=== PATIENT | female | born 1980 | race Hispanic/Latino ===

== ENCOUNTER 2017-12-29 15:39 | Emergency (ER) | payer BC, OTHER ==
[2017-12-29 16:08] LABS: BASOPHILS % (AUTO) 0.6 % (0.0-5.0); EOSINOPHILS % (AUTO) 2.3 % (0.0-8.0); HEMATOCRIT 41.2 % (36-48); LYMPHOCYTES % (AUTO) 41.2 % (21.0-51.0); MEAN CORPUSCULAR HEMOGLOBIN 27.3 pg (27.0-33.0); MEAN CORPUSCULAR HGB CONC 33.1 g/dL (32.0-36.0); MEAN CORPUSCULAR VOLUME 82.5 fL (79-99); MONOCYTES % (AUTO) 10.2 % (3.0-13.0); NEUTROPHILS % (AUTO) 45.7 % (40.0-77.0); NUCLEATED RED BLOOD CELLS 0.1 % (0.0-0.19); PLATELET COUNT (AUTO) 257 K/uL (130-400); RED BLOOD CELL COUNT(AUTO) 4.99 MIL/uL (4.00-5.50); RED CELL DISTRIBUTION WIDTH 16.5 % (11.0-15.5); WHITE BLOOD COUNT (AUTO) 10.3 K/uL (4.8-10.8)
[2017-12-29 16:09] LABS: APPEARANCE,URINE Cloudy (CLEAR); BILIRUBIN,URINE Negative (NEGATIVE); COLOR,URINE Yellow (YELLOW); GLUCOSE, URINE (UA) Negative (NEGATIVE); KETONES,URINE Negative (NEGATIVE); LEUKOCYTE ESTERASE ,URINE Small (NEGATIVE); NITRATE,URINE Negative (NEGATIVE); OCCULT BLOOD,URINE Large (NEGATIVE); PROTEIN,URINE Trace (NEGATIVE)
[2017-12-29 16:11] LABS: HCG,QUAL RESULT NEGATIVE (NEGATIVE)
[2017-12-29 16:17] LABS: POTASSIUM 3.3 mmol/L (3.5-5.1)
[2017-12-29 16:19] LABS: BACTERIA,URINE Few /HPF (None Seen); RBC,URINE 51-100 /HPF (0-1)
[2017-12-29 16:20] LABS: MUCUS,URINE Few LPF (None Seen)
[2017-12-29 16:22] LABS: ALBUMIN 4.2 g/dL (3.5-5.0); BILIRUBIN,TOTAL 0.4 mg/dL (0.2-1.0); TOTAL PROTEIN, SERUM 8.1 g/dL (6.0-8.3)
[2017-12-29] MEDS ORDERED: KETOROLAC TROMETHAMINE 30MG/ML ONE (16:47)
[2017-12-29] MEDS ORDERED: ONDANSETRON HCL 4 MG/2 ML VIAL ONE ×3 (16:47→22:01)
[2017-12-29] MEDS ORDERED: KETOROLAC TROMETHAMINE 15MG/ML ONE (17:42)
[2017-12-29] MEDS ORDERED: MORPHINE SULFATE 2 MG/ML 1ML SYG ONE (21:23)
[2017-12-29] MEDS ORDERED: TAMSULOSIN HCL 0.4 MG CAP.ER.24H ONE (21:23)
== END 2017-12-29 21:47 | disposition home or self-care (01) ==
LOC: EDH 15:39
DX: N20.1 Calculus of ureter (principal); Z98.890 Other specified postprocedural states
CPT/HCPCS: 36415; 76700; 80053; 81001; 81025; 85025; 96374; 96375; 96376; 99285; J1885 ×2; J2405 ×3

== ENCOUNTER 2019-07-26 13:24 | Emergency (ER) | payer BC, OTHER ==
[2019-07-26 14:20] LABS: BASOPHILS % (AUTO) 0.3 % (0.0-5.0); EOSINOPHILS % (AUTO) 0.1 % (0.0-8.0); HEMATOCRIT 39.9 % (36-48); LYMPHOCYTES % (AUTO) 12.6 % (21.0-51.0); MEAN CORPUSCULAR HEMOGLOBIN 25.4 pg (27.0-33.0); MEAN CORPUSCULAR HGB CONC 31.6 g/dL (32.0-36.0); MEAN CORPUSCULAR VOLUME 80.4 fL (79-99); MONOCYTES % (AUTO) 2.7 % (3.0-13.0); NEUTROPHILS % (AUTO) 83.8 % (40.0-77.0); PLATELET COUNT (AUTO) 303 K/uL (130-400); RED BLOOD CELL COUNT(AUTO) 4.96 MIL/uL (4.00-5.50); RED CELL DISTRIBUTION WIDTH 16.1 % (11.0-15.5); WHITE BLOOD COUNT (AUTO) 11.7 K/uL (4.8-10.8)
[2019-07-26 14:33] LABS: HCG,QUAL RESULT NEGATIVE (NEGATIVE)
[2019-07-26 14:35] LABS: APPEARANCE,URINE Cloudy (CLEAR); BILIRUBIN,URINE Negative (NEGATIVE); COLOR,URINE Yellow (YELLOW); GLUCOSE, URINE (UA) Negative (NEGATIVE); KETONES,URINE Negative (NEGATIVE); LEUKOCYTE ESTERASE ,URINE Trace (NEGATIVE); NITRATE,URINE Negative (NEGATIVE); OCCULT BLOOD,URINE Large (NEGATIVE); PROTEIN,URINE Trace mg/dL (NEGATIVE)
[2019-07-26 14:35] LABS: ALBUMIN 4.2 g/dL (3.5-5.0); BILIRUBIN,TOTAL 0.8 mg/dL (0.2-1.0); POTASSIUM 3.7 mmol/L (3.5-5.1); TOTAL PROTEIN, SERUM 8.1 g/dL (6.0-8.3)
[2019-07-26 15:08] LABS: BACTERIA,URINE Moderate /HPF (None Seen); MUCUS,URINE Moderate LPF (None Seen); RBC,URINE 26-50 /HPF (0-1); SQUAMOUS EPITHELIAL CELL,UR Many /HPF (0-2)
== END 2019-07-26 15:10 | disposition home or self-care (01) ==
LOC: EDH 13:24
DX: N20.2 Calculus of kidney with calculus of ureter (principal); Z98.890 Other specified postprocedural states
CPT/HCPCS: 36415; 76770; 80053; 81001; 81025; 85025

== ENCOUNTER 2019-12-30 20:49 | Inpatient (IN) | payer OTHER ==
[~2019-12-30] VITALS: Ht 167.6 cm; Wt 66.1 kg
[2019-12-30] MEDS ORDERED: ALBUTEROL INHALER 90MCG/INH IH ONE (21:15)
[2019-12-30] MEDS ORDERED: ONDANSETRON HCL 4 MG/2 ML VIAL ONE (22:00)
[2019-12-30] MEDS ORDERED: ACETAMINOPHEN EXTRA STRENGTH 500 MG TABLET ONE (22:03)
[2019-12-30 22:06] LABS: BASOPHILS % (AUTO) 0.1 % (0.0-5.0); LYMPHOCYTES % (AUTO) 12.9 % (21.0-51.0); MEAN CORPUSCULAR HEMOGLOBIN 25.6 pg (27.0-33.0); MEAN CORPUSCULAR HGB CONC 32.1 g/dL (32.0-36.0); MONOCYTES % (AUTO) 2.8 % (3.0-13.0); NEUTROPHILS % (AUTO) 83.4 % (40.0-77.0); PLATELET COUNT (AUTO) 258 K/uL (130-400); RED BLOOD CELL COUNT(AUTO) 4.25 MIL/uL (4.00-5.50); RED CELL DISTRIBUTION WIDTH 15.1 % (11.0-15.5); WHITE BLOOD COUNT (AUTO) 11.1 K/uL (4.8-10.8)
[2019-12-30 22:09] LABS: ABG BASE EXCESS -1.6 mmol/L (-2.0-3.0); ABG HCO3 21.7 mmol/L (21.0-28.0); ABG OXYGEN SATURATION 84.7 % (95.0-99.0); ABG PCO2 33 mmHg (32-45)
[2019-12-30 22:27] LABS: CREATININE 0.8 mg/dL (0.5-1.5); POTASSIUM 3.5 mmol/L (3.5-5.1)
[2019-12-30 22:32] LABS: ALBUMIN 3.1 g/dL (3.5-5.0); BILIRUBIN,TOTAL 0.6 mg/dL (0.2-1.0); TOTAL PROTEIN, SERUM 7.8 g/dL (6.0-8.3)
[2019-12-30] MEDS ORDERED: DEXAMETHASONE SOD PHOSPHATE 10MG/ML 1ML VIAL ONE (23:01)
[2019-12-30 23:51] LABS: APPEARANCE,URINE Cloudy (CLEAR); BILIRUBIN,URINE Negative (NEGATIVE); COLOR,URINE Dark Yellow (YELLOW); GLUCOSE, URINE (UA) Negative (NEGATIVE); KETONES,URINE Negative (NEGATIVE); LEUKOCYTE ESTERASE ,URINE Negative (NEGATIVE); NITRATE,URINE Negative (NEGATIVE); OCCULT BLOOD,URINE Negative (NEGATIVE); PH,URINE 6.5 (5.0-8.0); PROTEIN,URINE POS 2+ mg/dL (NEGATIVE)
[2019-12-30 23:53] LABS: HCG,QUAL RESULT POSITIVE (NEGATIVE)
[2019-12-31] MEDS ORDERED: AZITHROMYCIN 500MG+NS 250ML 250 ML IV ONE ×2 (00:02→20:18)
[2019-12-31] MEDS ORDERED: CEFTRIAXONE SODIUM 1 GM ONE ×2 (00:02→20:18)
[2019-12-31 00:11] LABS: BACTERIA,URINE Few /HPF (None Seen); RBC,URINE None Seen /HPF (0-1); SQUAMOUS EPITHELIAL CELL,UR Moderate /HPF (0-2); WBC,URINE 0-1 /HPF (0-1)
[2019-12-31] MEDS ORDERED: ALBUTEROL INHALER 90MCG/INH IH PRN (02:30)
[2019-12-31] MEDS ORDERED: SODIUM CHLORIDE 0.9% 1000ML 1,000 ML IV SCH (02:30)
[2019-12-31] MEDS ORDERED: NITROGLYCERIN 0.4 MG SL TAB SL PRN (02:30)
[2019-12-31] MEDS ORDERED: SODIUM CHLORIDE 0.9% 1000ML 2,000 ML IV ONE (04:50)
[2019-12-31 05:29] LABS: HEMATOCRIT 31.8 % (36-48); MEAN CORPUSCULAR HEMOGLOBIN 25.3 pg (27.0-33.0); MEAN CORPUSCULAR HGB CONC 31.8 g/dL (32.0-36.0); MEAN CORPUSCULAR VOLUME 79.7 fL (79-99); PLATELET COUNT (AUTO) 154 K/uL (130-400); RED BLOOD CELL COUNT(AUTO) 3.99 MIL/uL (4.00-5.50); RED CELL DISTRIBUTION WIDTH 15.3 % (11.0-15.5)
[2019-12-31 05:42] LABS: INR 0.98 (0.85-1.15); PROTHROMBIN TIME 10.6 SEC (9.6-11.6)
[2019-12-31 05:47] LABS: BAND NEUTROPHILS % (MANUAL) 11 % (0-2); LYMPHOCYTES % (MANUAL) 6 % (22-44); MONOCYTES % (MANUAL) 1 % (2-9); SEGMENTED NEUTROPHILS % 82 % (40-70)
[2019-12-31 05:48] LABS: MAN.DIFF COMMENT-IMPRESSION MANUAL DIFFERENTIAL
[2019-12-31 05:54] LABS: ALANINE AMINOTRANSFERASE 23 U/L (12-78); ALBUMIN 2.6 g/dL (3.5-5.0); ASPARTATE AMINOTRANSFERASE 55 U/L (10-37); BILIRUBIN,TOTAL 0.3 mg/dL (0.2-1.0); CARBON DIOXIDE 25 mmol/L (21-32); CHLORIDE 103 mmol/L (101-111); CREATINE KINASE, TOTAL 33 U/L (21-232); CREATININE 0.9 mg/dL (0.5-1.5); GLOMERULAR FILTR. RATE CALC 73 mL/min (>60); GLUCOSE,RANDOM 155 mg/dL (70-105); LACTATE DEHYDROGENASE 403 U/L (81-234); MYOGLOBIN 19 ng/mL (10-92); POTASSIUM 4.1 mmol/L (3.5-5.1); SODIUM SERUM 136 mmol/L (136-145); TOTAL PROTEIN, SERUM 7.2 g/dL (6.0-8.3); TRIGLYCERIDES 143 mg/dL (30-200); TROPONIN I < 0.04 ng/mL (0.00-0.06); UREA NITROGEN, BLOOD 10 mg/dL (7-18)
[2019-12-31] MEDS ORDERED: METHYLPREDNISOLONE SOD SUCC 40MG/ML 1ML IVP SCH (06:00)
[2019-12-31] MEDS ORDERED: ENOXAPARIN SODIUM 40 MG/0.4 ML SYRINGE SQ SCH (09:00)
[2019-12-31] MEDS ORDERED: ENOXAPARIN SODIUM 40 MG/0.4 ML SYRINGE SQ ONE (15:24)
[2019-12-31] MEDS ORDERED: METHYLPREDNISOLONE SOD SUCC 40MG/ML 1ML ONE ×2 (15:24→20:18)
[2019-12-31] MEDS ORDERED: PANTOPRAZOLE SODIUM 40 MG TABLET.DR ONE (15:24)
--- NOTE | 2019-12-31 16:48 | NUR ---
CALL TO ROOM, SPOKE TO PT FOR DC PLANNING. PT WAS TOO SHORT OF BREATH, ASKED CM TO CALL DAUGHTER SANTHOSH, WHO PROVIDED INFO. PATIENT IS ACTIVE, INDEPENDENT, EMPLOYED, DRIVES. LIVES WITH TWO ADULT CHILDREN, NO DME, NO PRIMARY MD IN [place]. DC PLAN HOME. HYPOXEMIC AT THIS TIME Addendum: 12/31/19 at 1651 by FROYALN GUERRA RN CM Amended: Links added.
[2019-12-31] MEDS: AZITHROMYCIN 500MG+NS 250ML 250 ML IV SCH (21:00)
[2019-12-31] MEDS ORDERED: ONDANSETRON HCL 4 MG/2 ML VIAL ONE (22:16)
[2020-01-01] MEDS ORDERED: METHYLPREDNISOLONE SOD SUCC 40MG/ML 1ML ONE ×3 (05:04→16:48)
[2020-01-01] MEDS ORDERED: SODIUM CHLORIDE 0.9% 500ML 500 ML IV ONE (06:03)
[2020-01-01 06:25] LABS: CRP QUANTITATIVE 125.6 mg/L (0.00-9.0)
[2020-01-01] MEDS: PANTOPRAZOLE SODIUM 40 MG TABLET.DR PO SCH (09:00)
[2020-01-01] MEDS ORDERED: ACETAMINOPHEN 325 MG TAB ONE (13:57)
[2020-01-01] MEDS ORDERED: ENOXAPARIN SODIUM 40 MG/0.4 ML SYRINGE SQ ONE ×2 (16:48→21:39)
[2020-01-01] MEDS ORDERED: PANTOPRAZOLE SODIUM 40 MG TABLET.DR ONE (16:49)
[2020-01-01] MEDS: SODIUM CHLORIDE 0.9% 1000ML 1,000 ML IV SCH (18:26)
[2020-01-01] MEDS ORDERED: CEFTRIAXONE SODIUM 1 GM ONE (20:47)
[2020-01-01] MEDS: CEFTRIAXONE SODIUM 1 GM IV SCH (21:00)
[2020-01-01] MEDS: AZITHROMYCIN 500MG+NS 250ML 250 ML IV SCH (21:00)
[2020-01-01 21:24] LABS: ABG BASE EXCESS -1.4 mmol/L (-2.0-3.0); ABG HCO3 22.5 mmol/L (21.0-28.0); ABG OXYGEN SATURATION 82.1 % (95.0-99.0); ABG PCO2 35 mmHg (32-45)
[2020-01-01] MEDS ORDERED: METHYLPREDNISOLONE SOD SUCC 125MG/2ML VIAL ONE (21:39)
[2020-01-01] MEDS ORDERED: ENOXAPARIN SODIUM 30 MG/0.3 ML SQ ONE (21:39)
[2020-01-01] MEDS: METHYLPREDNISOLONE SOD SUCC 125MG/2ML VIAL IVP SCH (22:00)
[2020-01-01] MEDS ORDERED: FUROSEMIDE 10 MG/ML 2ML VIAL IV SCH (22:30)
[2020-01-02] VITALS: BP 124/66
[2020-01-02] MEDS ORDERED: FUROSEMIDE 10 MG/ML 2ML VIAL ONE (01:05)
[2020-01-02] MEDS: ACETAMINOPHEN 325 MG TAB PO PRN ×3 (01:22→18:29)
[2020-01-02] MEDS: METHYLPREDNISOLONE SOD SUCC 125MG/2ML VIAL IVP SCH ×3 (03:50→14:59)
[2020-01-02] MEDS: SODIUM CHLORIDE 0.9% 1000ML 1,000 ML IV SCH (03:53)
[2020-01-02 03:54] VITALS: BP 104/76
[2020-01-02 05:01] LABS: CRP QUANTITATIVE 35.9 mg/L (0.00-9.0)
[2020-01-02 07:41] LABS: HEMATOCRIT 30.9 % (36-48); MEAN CORPUSCULAR HEMOGLOBIN 25.6 pg (27.0-33.0); MEAN CORPUSCULAR HGB CONC 31.4 g/dL (32.0-36.0); MEAN CORPUSCULAR VOLUME 81.5 fL (79-99); NUCLEATED RED BLOOD CELLS 0.2 % (0.0-0.19); PLATELET COUNT (AUTO) 401 K/uL (130-400); RED BLOOD CELL COUNT(AUTO) 3.79 MIL/uL (4.00-5.50); RED CELL DISTRIBUTION WIDTH 15.6 % (11.0-15.5); WHITE BLOOD COUNT (AUTO) 14.6 K/uL (4.8-10.8)
[2020-01-02 07:54] VITALS: BP 115/59
[2020-01-02 08:28] LABS: ALBUMIN 2.5 g/dL (3.5-5.0); BILIRUBIN,TOTAL 0.3 mg/dL (0.2-1.0); CREATININE 0.7 mg/dL (0.5-1.5); POTASSIUM 3.8 mmol/L (3.5-5.1); TOTAL PROTEIN, SERUM 6.2 g/dL (6.0-8.3)
[2020-01-02] MEDS: PANTOPRAZOLE SODIUM 40 MG TABLET.DR PO SCH (08:48)
[2020-01-02] MEDS: ENOXAPARIN SODIUM 80 MG/0.8 ML SQ SCH ×2 (08:53→20:36)
[2020-01-02 08:54] VITALS: BP 112/72
--- NOTE | 2020-01-02 09:00 | NUR ---
REPOSITIONED TO PRONE. PT MADE COMFORTABLE, ITEMS WITHIN REACH. EXPLAINED TO PT IMPORTANCE OF POSITION AND BENEFITS.
[2020-01-02 09:57] LABS: LYMPHOCYTES % (MANUAL) 6 % (22-44); MAN.DIFF COMMENT-IMPRESSION MANUAL DIFFERENTIAL; MONOCYTES % (MANUAL) 5 % (2-9); PLATELET MORPHOLOGY COMMENT ADEQUATE; SEGMENTED NEUTROPHILS % 89 % (40-70)
[2020-01-02] MEDS ORDERED: ONDANSETRON HCL 4 MG/2 ML VIAL IVP PRN (12:15)
[2020-01-02] MEDS: DIPHENHYDRAMINE HCL 25 MG CAPSULE PO PRN ×5 (14:57→20:58)
--- NOTE | 2020-01-02 16:31 | NUR ---
PT SPOKE TO DR THOMPSON, VIRTUAL CALL, WITH PATIENT. PT VERBALIZES RISKS FOR RECEIVING REMDEZEVIR. PT STATES THAT SHE WANTS MEDICATION REGARDLESS OF HER STATUS.
[2020-01-02] MEDS ORDERED: REMDESIVIR (INVESTIGATIONAL) 200 MG/250 ML NS IV ONE (17:00)
[2020-01-02] MEDS ORDERED: SODIUM CHLORIDE 0.9% 500ML 500 ML IV ONE (18:03)
[2020-01-02 18:54] VITALS: BP 134/64
[2020-01-02 19:54] VITALS: BP 148/76
[2020-01-02] MEDS: ONDANSETRON HCL 4 MG/2 ML VIAL IV PRN (20:35)
[2020-01-02] MEDS: AZITHROMYCIN 500MG+NS 250ML 250 ML IV SCH (20:35)
[2020-01-02] MEDS: CEFTRIAXONE SODIUM 1 GM IV SCH (20:35)
[2020-01-02] MEDS: METHYLPREDNISOLONE SOD SUCC 40MG/ML 1ML IVP SCH (21:12)
[2020-01-03] VITALS (25 sets, daily range): BP systolic 104–146; BP diastolic 50–74
[2020-01-03] MEDS: ONDANSETRON HCL 4 MG/2 ML VIAL IV PRN ×2 (03:42→20:26)
[2020-01-03] MEDS: ACETAMINOPHEN 325 MG TAB PO PRN ×3 (03:42→20:27)
[2020-01-03 06:53] LABS: BASOPHILS % (AUTO) 0.3 % (0.0-5.0); LYMPHOCYTES % (AUTO) 10.4 % (21.0-51.0); MEAN CORPUSCULAR HEMOGLOBIN 24.7 pg (27.0-33.0); MEAN CORPUSCULAR VOLUME 79.6 fL (79-99); MONOCYTES % (AUTO) 5.4 % (3.0-13.0); NEUTROPHILS % (AUTO) 74.9 % (40.0-77.0); NUCLEATED RED BLOOD CELLS 0.7 % (0.0-0.19); PLATELET COUNT (AUTO) 459 K/uL (130-400); RED BLOOD CELL COUNT(AUTO) 3.77 MIL/uL (4.00-5.50); RED CELL DISTRIBUTION WIDTH 15.1 % (11.0-15.5); WHITE BLOOD COUNT (AUTO) 14.9 K/uL (4.8-10.8)
[2020-01-03 07:25] LABS: ALBUMIN 2.4 g/dL (3.5-5.0); BILIRUBIN,TOTAL 0.3 mg/dL (0.2-1.0); CREATININE 0.7 mg/dL (0.5-1.5); CRP QUANTITATIVE 20.8 mg/L (0.00-9.0); POTASSIUM 3.2 mmol/L (3.5-5.1); TOTAL PROTEIN, SERUM 6.3 g/dL (6.0-8.3)
[2020-01-03] MEDS: PANTOPRAZOLE SODIUM 40 MG TABLET.DR PO SCH (08:37)
[2020-01-03] MEDS: ENOXAPARIN SODIUM 80 MG/0.8 ML SQ SCH ×2 (08:38→20:26)
[2020-01-03] MEDS: METHYLPREDNISOLONE SOD SUCC 40MG/ML 1ML IVP SCH ×2 (08:38→20:26)
[2020-01-03] MEDS: POTASSIUM CHLORIDE 20 MEQ ERTAB PO SCH (08:43)
[2020-01-03] MEDS: REMDESIVIR (INVESTIGATIONAL) 100 MG/250ML NS IV SCH (16:34)
[2020-01-03] MEDS: AZITHROMYCIN 500MG+NS 250ML 250 ML IV SCH (20:25)
[2020-01-03] MEDS: CEFTRIAXONE SODIUM 1 GM IV SCH (20:26)
[2020-01-03] MEDS: DIPHENHYDRAMINE HCL 25 MG CAPSULE PO PRN (20:26)
[2020-01-04] VITALS (11 sets, daily range): BP systolic 98–132; BP diastolic 43–72
[2020-01-04 07:11] LABS: HEMATOCRIT 30.3 % (36-48); MEAN CORPUSCULAR HEMOGLOBIN 25.1 pg (27.0-33.0); MEAN CORPUSCULAR HGB CONC 31.7 g/dL (32.0-36.0); MEAN CORPUSCULAR VOLUME 79.3 fL (79-99); PLATELET COUNT (AUTO) 501 K/uL (130-400); RED BLOOD CELL COUNT(AUTO) 3.82 MIL/uL (4.00-5.50); RED CELL DISTRIBUTION WIDTH 14.9 % (11.0-15.5); WHITE BLOOD COUNT (AUTO) 17.6 K/uL (4.8-10.8)
[2020-01-04] MEDS: POTASSIUM CHLORIDE 20 MEQ ERTAB PO SCH (07:47)
[2020-01-04 08:10] LABS: ALBUMIN 2.4 g/dL (3.5-5.0); BILIRUBIN,TOTAL 0.4 mg/dL (0.2-1.0); CREATININE 0.7 mg/dL (0.5-1.5); CRP QUANTITATIVE 45.2 mg/L (0.00-9.0); POTASSIUM 3.3 mmol/L (3.5-5.1); TOTAL PROTEIN, SERUM 6.3 g/dL (6.0-8.3)
[2020-01-04] MEDS: METHYLPREDNISOLONE SOD SUCC 40MG/ML 1ML IVP SCH (08:18)
[2020-01-04] MEDS: PANTOPRAZOLE SODIUM 40 MG TABLET.DR PO SCH (08:18)
[2020-01-04] MEDS: ENOXAPARIN SODIUM 80 MG/0.8 ML SQ SCH ×2 (08:19→20:04)
[2020-01-04] MEDS: DIPHENHYDRAMINE HCL 25 MG CAPSULE PO PRN ×2 (08:19→20:06)
[2020-01-04 08:52] LABS: BAND NEUTROPHILS % (MANUAL) 2 % (0-2); LYMPHOCYTES % (MANUAL) 10 % (22-44); MONOCYTES % (MANUAL) 8 % (2-9); SEGMENTED NEUTROPHILS % 80 % (40-70)
[2020-01-04 08:54] LABS: MAN.DIFF COMMENT-IMPRESSION MANUAL DIFFERENTIAL; PLATELET MORPHOLOGY COMMENT INCREASED
[2020-01-04] MEDS: ACETAMINOPHEN 325 MG TAB PO PRN ×2 (09:08→20:05)
[2020-01-04] MEDS ORDERED: COMPOUND IV REFRIGERATED 1 EACH IVSOLN MISC PRN (13:00)
[2020-01-04] MEDS: DEXAMETHASONE 4 MG TAB PO SCH ×2 (13:11→20:05)
[2020-01-04] MEDS: REMDESIVIR (INVESTIGATIONAL) 100 MG/250ML NS IV SCH (17:01)
[2020-01-04] MEDS: CEFTRIAXONE SODIUM 1 GM IV SCH (20:04)
[2020-01-04] MEDS: ONDANSETRON HCL 4 MG/2 ML VIAL IV PRN (20:06)
[2020-01-04] MEDS: AZITHROMYCIN 500MG+NS 250ML 250 ML IV SCH (20:06)
[2020-01-05] VITALS (32 sets, daily range): BP systolic 105–147; BP diastolic 42–117
[2020-01-05 05:48] LABS: HEMATOCRIT 30.3 % (36-48); MEAN CORPUSCULAR HEMOGLOBIN 25.1 pg (27.0-33.0); MEAN CORPUSCULAR VOLUME 78.5 fL (79-99); NUCLEATED RED BLOOD CELLS 0.8 % (0.0-0.19); PLATELET COUNT (AUTO) 488 K/uL (130-400); RED BLOOD CELL COUNT(AUTO) 3.86 MIL/uL (4.00-5.50); RED CELL DISTRIBUTION WIDTH 15.2 % (11.0-15.5)
[2020-01-05 06:05] LABS: ALBUMIN 2.3 g/dL (3.5-5.0); BILIRUBIN,TOTAL 0.5 mg/dL (0.2-1.0); CREATININE 0.5 mg/dL (0.5-1.5); CRP QUANTITATIVE 130.4 mg/L (0.00-9.0); POTASSIUM 3.4 mmol/L (3.5-5.1); TOTAL PROTEIN, SERUM 6.4 g/dL (6.0-8.3)
[2020-01-05 06:51] LABS: BAND NEUTROPHILS % (MANUAL) 2 % (0-2); LYMPHOCYTES % (MANUAL) 3 % (22-44); MAN.DIFF COMMENT-IMPRESSION MANUAL DIFFERENTIAL; MONOCYTES % (MANUAL) 3 % (2-9); PLATELET MORPHOLOGY COMMENT ADEQUATE; REACTIVE LYMPHOCYTES 2 % (0-0); SEGMENTED NEUTROPHILS % 90 % (40-70)
[2020-01-05] MEDS: POTASSIUM CHLORIDE 20 MEQ ERTAB PO SCH (07:59)
[2020-01-05] MEDS: ACETAMINOPHEN 325 MG TAB PO PRN ×2 (07:59→18:01)
[2020-01-05] MEDS: ENOXAPARIN SODIUM 80 MG/0.8 ML SQ SCH ×2 (08:01→20:11)
[2020-01-05] MEDS: DEXAMETHASONE 4 MG TAB PO SCH (08:02)
[2020-01-05] MEDS: PANTOPRAZOLE SODIUM 40 MG TABLET.DR PO SCH (08:02)
[2020-01-05] MEDS: REMDESIVIR (INVESTIGATIONAL) 100 MG/250ML NS IV SCH (16:16)
[2020-01-05] MEDS: CEFTRIAXONE SODIUM 1 GM IV SCH (20:09)
[2020-01-05] MEDS: ONDANSETRON HCL 4 MG/2 ML VIAL IV PRN (20:11)
[2020-01-05] MEDS: AZITHROMYCIN 500MG+NS 250ML 250 ML IV SCH (20:11)
[2020-01-05] MEDS: DIPHENHYDRAMINE HCL 25 MG CAPSULE PO PRN (20:12)
[2020-01-05] MEDS ORDERED: DEXAMETHASONE SOD PHOSPHATE 4 MG/ML 1ML VIAL IM SCH (21:00)
[2020-01-06] VITALS (28 sets, daily range): BP systolic 100–139; BP diastolic 37–90
[2020-01-06 04:20] LABS: BASOPHILS % (AUTO) 0.4 % (0.0-5.0); HEMATOCRIT 32.6 % (36-48); LYMPHOCYTES % (AUTO) 5.1 % (21.0-51.0); MEAN CORPUSCULAR HEMOGLOBIN 25.4 pg (27.0-33.0); MEAN CORPUSCULAR HGB CONC 32.2 g/dL (32.0-36.0); MEAN CORPUSCULAR VOLUME 78.9 fL (79-99); MONOCYTES % (AUTO) 3.1 % (3.0-13.0); NEUTROPHILS % (AUTO) 84.5 % (40.0-77.0); NUCLEATED RED BLOOD CELLS 0.4 % (0.0-0.19); PLATELET COUNT (AUTO) 429 K/uL (130-400); RED BLOOD CELL COUNT(AUTO) 4.13 MIL/uL (4.00-5.50); RED CELL DISTRIBUTION WIDTH 15.3 % (11.0-15.5); WHITE BLOOD COUNT (AUTO) 17.1 K/uL (4.8-10.8)
[2020-01-06 04:41] LABS: ALBUMIN 2.2 g/dL (3.5-5.0); BILIRUBIN,TOTAL 0.5 mg/dL (0.2-1.0); CREATININE 0.6 mg/dL (0.5-1.5); CRP QUANTITATIVE 104.1 mg/L (0.00-9.0); POTASSIUM 3.8 mmol/L (3.5-5.1); TOTAL PROTEIN, SERUM 6.6 g/dL (6.0-8.3)
[2020-01-06] MEDS: PANTOPRAZOLE SODIUM 40 MG TABLET.DR PO SCH (08:04)
[2020-01-06] MEDS: ACETAMINOPHEN 325 MG TAB PO PRN ×2 (08:05→17:28)
[2020-01-06] MEDS: DEXAMETHASONE SOD PHOSPHATE 4 MG/ML 1ML VIAL IV SCH ×2 (08:06→20:04)
[2020-01-06] MEDS: ENOXAPARIN SODIUM 80 MG/0.8 ML SQ SCH ×2 (08:07→20:03)
[2020-01-06] MEDS ORDERED: DEXAMETHASONE 4 MG TAB PO SCH (09:00)
--- NOTE | 2020-01-06 11:00 | NUR ---
Dr. Odom present outside patient's room, as per MD, patient to remain in ICU, as she continues with NRM with 100 % FIO2, charge nurse Karen Thakkar,IGOR made aware
[2020-01-06] MEDS: GUAIFENESIN-DM 200/20 MG 10 ML PO PRN (13:02)
[2020-01-06] MEDS: REMDESIVIR (INVESTIGATIONAL) 100 MG/250ML NS IV SCH (16:07)
[2020-01-06] MEDS: AZITHROMYCIN 500MG+NS 250ML 250 ML IV SCH (20:01)
[2020-01-06] MEDS: CEFTRIAXONE SODIUM 1 GM IV SCH (20:01)
[2020-01-06] MEDS: ONDANSETRON HCL 4 MG/2 ML VIAL IV PRN (20:03)
[2020-01-06] MEDS: DIPHENHYDRAMINE HCL 25 MG CAPSULE PO PRN (20:03)
[2020-01-07] VITALS (28 sets, daily range): BP systolic 106–136; BP diastolic 48–80
[2020-01-07 04:54] LABS: BASOPHILS % (AUTO) 0.3 % (0.0-5.0); HEMATOCRIT 33.4 % (36-48); LYMPHOCYTES % (AUTO) 4.8 % (21.0-51.0); MEAN CORPUSCULAR HEMOGLOBIN 24.9 pg (27.0-33.0); MEAN CORPUSCULAR HGB CONC 31.4 g/dL (32.0-36.0); MEAN CORPUSCULAR VOLUME 79.3 fL (79-99); NEUTROPHILS % (AUTO) 85.1 % (40.0-77.0); NUCLEATED RED BLOOD CELLS 0.2 % (0.0-0.19); PLATELET COUNT (AUTO) 511 K/uL (130-400); RED BLOOD CELL COUNT(AUTO) 4.21 MIL/uL (4.00-5.50); RED CELL DISTRIBUTION WIDTH 15.6 % (11.0-15.5); WHITE BLOOD COUNT (AUTO) 15.8 K/uL (4.8-10.8)
[2020-01-07 05:06] LABS: ALBUMIN 2.3 g/dL (3.5-5.0); BILIRUBIN,TOTAL 0.5 mg/dL (0.2-1.0); CREATININE 0.6 mg/dL (0.5-1.5); CRP QUANTITATIVE 49.8 mg/L (0.00-9.0); POTASSIUM 3.9 mmol/L (3.5-5.1); TOTAL PROTEIN, SERUM 6.4 g/dL (6.0-8.3)
[2020-01-07] MEDS: ACETAMINOPHEN 325 MG TAB PO PRN ×2 (08:51→20:43)
[2020-01-07] MEDS: DEXAMETHASONE SOD PHOSPHATE 4 MG/ML 1ML VIAL IV SCH ×2 (08:51→20:41)
[2020-01-07] MEDS: PANTOPRAZOLE SODIUM 40 MG TABLET.DR PO SCH (08:51)
[2020-01-07] MEDS: ENOXAPARIN SODIUM 80 MG/0.8 ML SQ SCH ×2 (10:18→20:47)
[2020-01-07] MEDS ORDERED: BENZOCAINE/MENTH/CETYLPYRD CL 1 EACH LOZENGE MM SCH (11:45)
[2020-01-07] MEDS: ONDANSETRON HCL 4 MG/2 ML VIAL IV PRN (20:41)
[2020-01-07] MEDS: AZITHROMYCIN 500MG+NS 250ML 250 ML IV SCH (20:43)
[2020-01-07] MEDS: DIPHENHYDRAMINE HCL 25 MG CAPSULE PO PRN (20:43)
[2020-01-07] MEDS: CEFTRIAXONE SODIUM 1 GM IV SCH (20:48)
[2020-01-08] VITALS (24 sets, daily range): BP systolic 95–139; BP diastolic 17–71
[2020-01-08 04:22] LABS: BASOPHILS % (AUTO) 0.2 % (0.0-5.0); LYMPHOCYTES % (AUTO) 4.2 % (21.0-51.0); MEAN CORPUSCULAR HEMOGLOBIN 25.5 pg (27.0-33.0); MEAN CORPUSCULAR HGB CONC 32.3 g/dL (32.0-36.0); MEAN CORPUSCULAR VOLUME 79.1 fL (79-99); MONOCYTES % (AUTO) 3.5 % (3.0-13.0); NEUTROPHILS % (AUTO) 87.5 % (40.0-77.0); PLATELET COUNT (AUTO) 485 K/uL (130-400); RED BLOOD CELL COUNT(AUTO) 3.92 MIL/uL (4.00-5.50); RED CELL DISTRIBUTION WIDTH 15.6 % (11.0-15.5); WHITE BLOOD COUNT (AUTO) 17.4 K/uL (4.8-10.8)
[2020-01-08 05:08] LABS: CREATININE 0.6 mg/dL (0.5-1.5); CRP QUANTITATIVE 25.3 mg/L (0.00-9.0); POTASSIUM 4.1 mmol/L (3.5-5.1)
[2020-01-08] MEDS: ACETAMINOPHEN 325 MG TAB PO PRN ×2 (05:13→15:01)
[2020-01-08] MEDS: PANTOPRAZOLE SODIUM 40 MG TABLET.DR PO SCH (08:04)
[2020-01-08] MEDS: DEXAMETHASONE SOD PHOSPHATE 4 MG/ML 1ML VIAL IV SCH ×2 (08:04→21:00)
[2020-01-08] MEDS: ENOXAPARIN SODIUM 80 MG/0.8 ML SQ SCH ×2 (08:05→21:00)
--- NOTE | 2020-01-08 10:50 | NUR ---
convalescent plasma patient agreed and consented to having convalescent plasma infusion since yesterday. As per Chelle, supervisor nut processing, units are still not available and she stated she will call us when units are available for patient. Verified patient is also on wait list for convalescent plasma
--- NOTE | 2020-01-08 12:14 | NUR ---
RDSCREEN- LOS X 8 Pt admitted with Severe Sepsis, CAP, positive COVID-19. Pt tolerating Regular diet order with no report of GI distress, Pt reports food is delicious and eating 100%. WBC 17.4. S/p Plasma Tx. Prone positioning. Recommend 500mg Vitamin C (BID), 220mg ZnSO4 (QD), MVI (QD). Recommend 60mL Pro[address] QD. RD to continue to monitor. Please notify as additional nutrition concerns arise. Thank you.
--- NOTE | 2020-01-08 18:15 | NUR ---
TRANSFER REPORT GIVEN TO IGOR HUSTON, AND PATIENT TRANSFERRED TO ROOM 231; PATIENT COMPLAINS OF NO PAIN AT THIS TIME. PATIENT CONTINUES ON NONREBREATHER MASK AT 100% AND HAS PRONOUNCED SOB ON EXERTION; AND RN AWARE
[2020-01-08] MEDS: AZITHROMYCIN 500MG+NS 250ML 250 ML IV SCH (21:00)
[2020-01-08] MEDS: CEFTRIAXONE SODIUM 1 GM IV SCH (21:00)
[2020-01-09 00:04] VITALS: BP 131/74
[2020-01-09] MEDS: ACETAMINOPHEN 325 MG TAB PO PRN ×2 (03:43→05:14)
[2020-01-09 04:04] VITALS: BP 117/77
[2020-01-09] MEDS: PANTOPRAZOLE SODIUM 40 MG TABLET.DR PO SCH (07:53)
[2020-01-09] MEDS: DEXAMETHASONE SOD PHOSPHATE 4 MG/ML 1ML VIAL IV SCH ×2 (07:53→21:35)
[2020-01-09] MEDS: ENOXAPARIN SODIUM 80 MG/0.8 ML SQ SCH ×2 (07:54→21:35)
[2020-01-09 08:00] VITALS: BP 110/65
[2020-01-09 08:30] LABS: BASOPHILS % (AUTO) 0.2 % (0.0-5.0); HEMATOCRIT 32.6 % (36-48); LYMPHOCYTES % (AUTO) 3.9 % (21.0-51.0); MEAN CORPUSCULAR HEMOGLOBIN 25.1 pg (27.0-33.0); MEAN CORPUSCULAR HGB CONC 31.6 g/dL (32.0-36.0); MEAN CORPUSCULAR VOLUME 79.3 fL (79-99); MONOCYTES % (AUTO) 3.3 % (3.0-13.0); NEUTROPHILS % (AUTO) 87.4 % (40.0-77.0); NUCLEATED RED BLOOD CELLS 0.1 % (0.0-0.19); PLATELET COUNT (AUTO) 515 K/uL (130-400); RED BLOOD CELL COUNT(AUTO) 4.11 MIL/uL (4.00-5.50); WHITE BLOOD COUNT (AUTO) 20.6 K/uL (4.8-10.8)
[2020-01-09] MEDS: GUAIFENESIN-DM 200/20 MG 10 ML PO PRN (08:34)
[2020-01-09 09:32] LABS: CREATININE 0.7 mg/dL (0.5-1.5); CRP QUANTITATIVE 24.9 mg/L (0.00-9.0); POTASSIUM 3.9 mmol/L (3.5-5.1)
[2020-01-09 11:24] VITALS: BP 108/66
[2020-01-09] MEDS: FLUTICASONE/VILANTEROL 1 EACH BLST.W.DEV IH SCH (11:26)
[2020-01-09] MEDS ORDERED: SODIUM CHLORIDE 0.9% 250 ML IV ONE (14:19)
--- NOTE | 2020-01-09 14:36 | NUR ---
started transfusion of Convalescent plasma.
[2020-01-09 16:00] VITALS: BP 120/78
[2020-01-09 20:31] VITALS: BP 115/53
[2020-01-09] MEDS: ALBUTEROL INHALER 90MCG/INH IH SCH (22:31)
[2020-01-10 00:21] VITALS: BP 149/69
[2020-01-10] MEDS: ALBUTEROL INHALER 90MCG/INH IH SCH ×6 (02:00→21:27)
[2020-01-10 04:48] VITALS: BP 112/62
[2020-01-10 05:57] LABS: HEMATOCRIT 30.8 % (36-48); MEAN CORPUSCULAR HEMOGLOBIN 25.6 pg (27.0-33.0); MEAN CORPUSCULAR HGB CONC 32.1 g/dL (32.0-36.0); MEAN CORPUSCULAR VOLUME 79.8 fL (79-99); NUCLEATED RED BLOOD CELLS 0.2 % (0.0-0.19); PLATELET COUNT (AUTO) 458 K/uL (130-400); RED BLOOD CELL COUNT(AUTO) 3.86 MIL/uL (4.00-5.50); RED CELL DISTRIBUTION WIDTH 16.5 % (11.0-15.5); WHITE BLOOD COUNT (AUTO) 19.4 K/uL (4.8-10.8)
[2020-01-10 06:03] LABS: ALBUMIN 2.5 g/dL (3.5-5.0); BILIRUBIN,TOTAL 0.4 mg/dL (0.2-1.0); CREATININE 0.7 mg/dL (0.5-1.5); CRP QUANTITATIVE 21.7 mg/L (0.00-9.0); POTASSIUM 4.3 mmol/L (3.5-5.1); TOTAL PROTEIN, SERUM 6.5 g/dL (6.0-8.3)
[2020-01-10 07:37] LABS: BAND NEUTROPHILS % (MANUAL) 1 % (0-2); LYMPHOCYTES % (MANUAL) 8 % (22-44); MAN.DIFF COMMENT-IMPRESSION MANUAL DIFFERENTIAL; MONOCYTES % (MANUAL) 2 % (2-9); SEGMENTED NEUTROPHILS % 89 % (40-70)
[2020-01-10 07:38] LABS: PLATELET MORPHOLOGY COMMENT ADEQUATE
[2020-01-10 08:00] VITALS: BP 152/72
[2020-01-10] MEDS: FLUTICASONE/VILANTEROL 1 EACH BLST.W.DEV IH SCH (08:22)
[2020-01-10] MEDS: ENOXAPARIN SODIUM 80 MG/0.8 ML SQ SCH ×2 (08:22→21:23)
[2020-01-10] MEDS: DEXAMETHASONE SOD PHOSPHATE 4 MG/ML 1ML VIAL IV SCH (08:22)
[2020-01-10] MEDS: PANTOPRAZOLE SODIUM 40 MG TABLET.DR PO SCH (08:22)
[2020-01-10 11:33] VITALS: BP 104/57
[2020-01-10] MEDS: METHYLPREDNISOLONE SOD SUCC 40MG/ML 1ML IVP SCH ×3 (12:11→23:42)
[2020-01-10] MEDS ORDERED: PHARMACY COMMUNICATION** REMDESIVIR ORDER MISC SCH (12:30)
--- NOTE | 2020-01-10 12:37 | NUR ---
REMDESIVIR SPOKE TO JEMAL, PHARMACIST REGARDING REMDESIVIR ORDER. ACCORDING TO JEMAL, PATIENT DOEST NOT MEET CRITERIA FOR REMDESIVIR AND ALSO MENTIONS THAT PATIENT ALREADY HAD THE REMDESEVIR ORDERED AND GIVEN FROM 01/01 TO ..
[2020-01-10 16:00] VITALS: BP 130/59
[2020-01-10 20:00] VITALS: BP 130/83
[2020-01-11] VITALS: BP 147/86
[2020-01-11] MEDS: ACETAMINOPHEN 325 MG TAB PO PRN (00:03)
[2020-01-11] MEDS: ALBUTEROL INHALER 90MCG/INH IH SCH ×6 (01:57→21:46)
[2020-01-11 04:00] VITALS: BP 140/53
[2020-01-11] MEDS: METHYLPREDNISOLONE SOD SUCC 40MG/ML 1ML IVP SCH ×4 (05:26→23:34)
[2020-01-11 05:39] LABS: BASOPHILS % (AUTO) 0.3 % (0.0-5.0); HEMATOCRIT 33.7 % (36-48); LYMPHOCYTES % (AUTO) 4.4 % (21.0-51.0); MEAN CORPUSCULAR HGB CONC 31.5 g/dL (32.0-36.0); MEAN CORPUSCULAR VOLUME 79.5 fL (79-99); MONOCYTES % (AUTO) 3.8 % (3.0-13.0); NEUTROPHILS % (AUTO) 85.8 % (40.0-77.0); NUCLEATED RED BLOOD CELLS 0.2 % (0.0-0.19); PLATELET COUNT (AUTO) 499 K/uL (130-400); RED BLOOD CELL COUNT(AUTO) 4.24 MIL/uL (4.00-5.50); RED CELL DISTRIBUTION WIDTH 16.7 % (11.0-15.5); WHITE BLOOD COUNT (AUTO) 20.1 K/uL (4.8-10.8)
[2020-01-11 06:02] LABS: ALBUMIN 2.6 g/dL (3.5-5.0); BILIRUBIN,TOTAL 0.5 mg/dL (0.2-1.0); CREATININE 0.6 mg/dL (0.5-1.5); MAGNESIUM 2.5 mg/dL (1.80-2.40); PHOSPHORUS 3.9 mg/dL (2.5-4.9); POTASSIUM 4.3 mmol/L (3.5-5.1)
[2020-01-11] MEDS: PANTOPRAZOLE SODIUM 40 MG TABLET.DR PO SCH (07:45)
[2020-01-11] MEDS: ENOXAPARIN SODIUM 80 MG/0.8 ML SQ SCH (07:46)
[2020-01-11] MEDS: FLUTICASONE/VILANTEROL 1 EACH BLST.W.DEV IH SCH (07:58)
[2020-01-11 08:00] VITALS: BP 139/74
--- NOTE | 2020-01-11 11:14 | NUR ---
DR. THOMPSON MAKING ROUNDS. DR. THOMPSON MADE AWARE OF NRB USE AND PULSE OXIMETRY PER VS CHECKS; VERBALIZED UNDERSTANDING, NO NEW ORDERS RECEIVED.
[2020-01-11 12:00] VITALS: BP 125/67
[2020-01-11] MEDS ORDERED: REMDESIVIR (INVESTIGATIONAL) 100 MG in SODIUM CHLORIDE 0.9% 250 ML IV SCH (12:15)
[2020-01-11 16:00] VITALS: BP 127/87
[2020-01-11 19:39] VITALS: BP 152/91
[2020-01-12] VITALS (7 sets, daily range): BP systolic 109–138; BP diastolic 46–82
[2020-01-12] MEDS: ALBUTEROL INHALER 90MCG/INH IH SCH ×6 (02:34→21:56)
[2020-01-12 04:57] LABS: BASOPHILS % (AUTO) 0.3 % (0.0-5.0); HEMATOCRIT 34.3 % (36-48); LYMPHOCYTES % (AUTO) 3.8 % (21.0-51.0); MEAN CORPUSCULAR HEMOGLOBIN 25.4 pg (27.0-33.0); MEAN CORPUSCULAR HGB CONC 31.2 g/dL (32.0-36.0); MEAN CORPUSCULAR VOLUME 81.5 fL (79-99); MONOCYTES % (AUTO) 5.3 % (3.0-13.0); NEUTROPHILS % (AUTO) 86.8 % (40.0-77.0); NUCLEATED RED BLOOD CELLS 0.2 % (0.0-0.19); PLATELET COUNT (AUTO) 472 K/uL (130-400); RED BLOOD CELL COUNT(AUTO) 4.21 MIL/uL (4.00-5.50); RED CELL DISTRIBUTION WIDTH 17.3 % (11.0-15.5); WHITE BLOOD COUNT (AUTO) 21.3 K/uL (4.8-10.8)
[2020-01-12 05:17] LABS: ALBUMIN 2.6 g/dL (3.5-5.0); BILIRUBIN,TOTAL 0.5 mg/dL (0.2-1.0); CREATININE 0.6 mg/dL (0.5-1.5); CRP QUANTITATIVE 9.8 mg/L (0.00-9.0); POTASSIUM 4.4 mmol/L (3.5-5.1); TOTAL PROTEIN, SERUM 6.9 g/dL (6.0-8.3)
[2020-01-12] MEDS: METHYLPREDNISOLONE SOD SUCC 40MG/ML 1ML IVP SCH ×4 (05:53→23:17)
[2020-01-12] MEDS: PANTOPRAZOLE SODIUM 40 MG TABLET.DR PO SCH (07:35)
[2020-01-12] MEDS: ENOXAPARIN SODIUM 80 MG/0.8 ML SQ SCH (07:36)
[2020-01-12] MEDS: FLUTICASONE/VILANTEROL 1 EACH BLST.W.DEV IH SCH (08:08)
[2020-01-12] MEDS ORDERED: ENOXAPARIN SODIUM 1 MG/KG SQ SCH (09:00)
--- NOTE | 2020-01-12 10:02 | NUR ---
RECEIVED CALL FROM ADDISON BYRD, PT'S SPOUSE (PT. CONFIRMED AND ALLOWED INFORMATION TO BE DISCLOSED), UPDATE PROVIDED AND QUESTIONS ANSWERED.
[2020-01-12] MEDS ORDERED: IOHEXOL-350 75 ML VIAL IV ONE (12:47)
--- NOTE | 2020-01-12 16:40 | NUR ---
UPON ENTERING ROOM, PT. SITTING UP IN BED WITH HOB AT SEMI-PUGA'S POSITION. NRB IN PLACE. RR-28/MIN. O2 SAT. PER PULSE OXIMETER-82%, PERSISTENT. ADVISED PT. TO TURN TO PRONE POSITION. PT. RELUCTANT BUT AGREED TO COMPLY. PT. TURNED TO LEFT SIDE-LYING POSITION ONLY, DID NOT POSITION HERSELF PRONE. O2 SATURATION SLOWLY INCREASED TO 92% AND REMAINED AT THAT LEVEL. NRB IN PLACE. INSTRUCTED PT. TO REMAIN AT LEAST IN THAT POSITION AND NOT POSITION HERSELF SUPINE OR SIT UP IN BED, VERBALIZED UNDERSTANDING. CALL LIGHT WITHIN REACH, VERBALIZED ABILITY TO USE. DOOR BLINDS REMAIN OPEN.
[2020-01-13] MEDS: ALBUTEROL INHALER 90MCG/INH IH SCH ×6 (02:04→21:02)
[2020-01-13 04:16] VITALS: BP 122/81
[2020-01-13 05:20] LABS: BASOPHILS % (AUTO) 0.2 % (0.0-5.0); MEAN CORPUSCULAR HEMOGLOBIN 25.4 pg (27.0-33.0); MEAN CORPUSCULAR HGB CONC 31.7 g/dL (32.0-36.0); MEAN CORPUSCULAR VOLUME 80.1 fL (79-99); MONOCYTES % (AUTO) 4.9 % (3.0-13.0); NUCLEATED RED BLOOD CELLS 0.1 % (0.0-0.19); PLATELET COUNT (AUTO) 454 K/uL (130-400); RED BLOOD CELL COUNT(AUTO) 4.37 MIL/uL (4.00-5.50); RED CELL DISTRIBUTION WIDTH 17.3 % (11.0-15.5); WHITE BLOOD COUNT (AUTO) 20.8 K/uL (4.8-10.8)
[2020-01-13 05:57] LABS: ALBUMIN 2.7 g/dL (3.5-5.0); BILIRUBIN,TOTAL 0.6 mg/dL (0.2-1.0); CREATININE 0.6 mg/dL (0.5-1.5); CRP QUANTITATIVE 5.7 mg/L (0.00-9.0); MAGNESIUM 2.9 mg/dL (1.80-2.40); PHOSPHORUS 4.8 mg/dL (2.5-4.9); POTASSIUM 4.5 mmol/L (3.5-5.1)
[2020-01-13] MEDS: METHYLPREDNISOLONE SOD SUCC 40MG/ML 1ML IVP SCH ×4 (06:26→22:54)
[2020-01-13] MEDS: PANTOPRAZOLE SODIUM 40 MG TABLET.DR PO SCH (08:59)
[2020-01-13] MEDS: FLUTICASONE/VILANTEROL 1 EACH BLST.W.DEV IH SCH (09:00)
[2020-01-13] MEDS: ENOXAPARIN SODIUM 80 MG/0.8 ML SQ SCH (09:00)
[2020-01-13 12:20] VITALS: BP 122/70
--- NOTE | 2020-01-13 13:09 | NUR ---
DR. Hansel SIMON AT NURSE'S STATION UPDATED ON PT.'S STATUS. QUESTIONS ANSWERED. NO NEW ORDERS RECEIVED.
--- NOTE | 2020-01-13 14:42 | NUR ---
UPDATED DR. LUNA VIA TELEMEDICINE RE:PT. STATUS AND QUESTIONS ANSWERED. DR. LUNA REQUESTING TO SPEAK WITH PT. DIRECTLY.
--- NOTE | 2020-01-13 14:45 | NUR ---
DR. Nimesh LUNA SPEAKING WITH PT. VIA TELEMEDICINE RE:IMPORTANCE OF ASSUMING PRONE POSITION; RATIONALE EXPLAINED BY DR. LUNA , PT. VERBALIZED UNDERSTANDING AND AGREED TO COMPLY.
--- NOTE | 2020-01-13 15:15 | NUR ---
PT. RESTING IN PRONE POSITION. NRB IN PLACE. EYES CLOSED, RESP.'S EVEN AND UNLABORED. CALL LIGHT WITHIN REACH. WINDOW BLINDS OPEN.
--- NOTE | 2020-01-13 15:17 | NUR ---
PHONE CALL Patient's , Kamlesh Barton, updated and given opportunity to ask questions.
[2020-01-13 16:38] VITALS: BP 132/70
[2020-01-13 19:30] VITALS: BP 151/91
[2020-01-14] VITALS: BP 127/73
[2020-01-14] MEDS: ALBUTEROL INHALER 90MCG/INH IH SCH ×6 (01:31→21:30)
[2020-01-14 04:00] VITALS: BP 118/89
[2020-01-14] MEDS: METHYLPREDNISOLONE SOD SUCC 40MG/ML 1ML IVP SCH ×4 (04:53→23:30)
[2020-01-14 06:12] LABS: HEMATOCRIT 37.5 % (36-48); MEAN CORPUSCULAR HEMOGLOBIN 25.3 pg (27.0-33.0); MEAN CORPUSCULAR HGB CONC 30.9 g/dL (32.0-36.0); MEAN CORPUSCULAR VOLUME 81.7 fL (79-99); NUCLEATED RED BLOOD CELLS 0.1 % (0.0-0.19); PLATELET COUNT (AUTO) 477 K/uL (130-400); RED BLOOD CELL COUNT(AUTO) 4.59 MIL/uL (4.00-5.50); RED CELL DISTRIBUTION WIDTH 17.8 % (11.0-15.5); WHITE BLOOD COUNT (AUTO) 25.1 K/uL (4.8-10.8)
[2020-01-14 06:27] LABS: ALBUMIN 2.7 g/dL (3.5-5.0); BILIRUBIN,TOTAL 0.6 mg/dL (0.2-1.0); CREATININE 0.7 mg/dL (0.5-1.5); CRP QUANTITATIVE 7.4 mg/L (0.00-9.0); POTASSIUM 4.5 mmol/L (3.5-5.1)
[2020-01-14 06:37] LABS: BAND NEUTROPHILS % (MANUAL) 5 % (0-2); LYMPHOCYTES % (MANUAL) 8 % (22-44); MAN.DIFF COMMENT-IMPRESSION MANUAL DIFFERENTIAL; MONOCYTES % (MANUAL) 6 % (2-9); PLATELET MORPHOLOGY COMMENT INCREASED; SEGMENTED NEUTROPHILS % 81 % (40-70)
[2020-01-14] MEDS: PANTOPRAZOLE SODIUM 40 MG TABLET.DR PO SCH (07:59)
--- NOTE | 2020-01-14 08:00 | NUR ---
SPOKE WITH PT. RE:NEED FOR AND IMPORTANCE OF PRONE POSITIONING. VERBALIZED UNDERSTANDING AND AGREED TO POSITION SELF AFTER HAVING BREAKFAST AND WAITING APPROXIMATELY 30MIN POST MEAL.
[2020-01-14] MEDS: ENOXAPARIN SODIUM 80 MG/0.8 ML SQ SCH (08:01)
--- NOTE | 2020-01-14 08:12 | NUR ---
PT. ATTEMPTED TO BRUSH TEETH IN BED. UNABLE TO TOLERATE, O2 SAT. DOWN TO 70'S. PLACED BACK ON NRB AND TURNED TO LEFT SIDED POSITION. O2 SAT. INCREASED TO 86%. STATES BREATHING EASIER AND FEELING "BETTER." CALL LIGHT WITHIN REACH, VERBALIZED ABILITY TO USE.
[2020-01-14 08:16] VITALS: BP 96/44
[2020-01-14] MEDS: FLUTICASONE/VILANTEROL 1 EACH BLST.W.DEV IH SCH (08:16)
--- NOTE | 2020-01-14 11:38 | NUR ---
DR. SIMON IN ROOM SPEAKING WITH PT. RE:NEED TO PLACE HERSELF PRONE, PT. VERBALIZED UNDERSTANDING. UPDATED DR. SIMON ON PT. STATUS AND PULSE OXIMETRY ON NRB, VERBALIZED UNDERSTANDING.
[2020-01-14 12:24] VITALS: BP 128/78
--- NOTE | 2020-01-14 12:39 | NUR ---
PHONE CALL Patient's , Kamlesh Barton was updated and given opportunity to ask questions.
[2020-01-14] MEDS: ZOSYN 3.375GM+NS 50ML 50 ML IV SCH ×2 (15:30→20:16)
--- NOTE | 2020-01-14 15:30 | NUR ---
PT. IN PRONE POSITION. DENIES ANY C/O AT THIS TIME. O2 SAT. 91% PER PULSE OX. AT BEDSIDE. CALL LIGHT WITHIN REACH, VERBALIZED ABILITY TO USE. BED LOW, SIDE RAILS UP X3.
--- NOTE | 2020-01-14 16:15 | NUR ---
PT. PARTIALLY ON LEFT SIDE AGAIN, STATES UNABLE TO REMAIN IN PRONE POSITION FOR TOO LONG. EXPLAINED RATIONALE FOR PRONE POSITIONING ONCE MORE AND MADE AWARE OF O2 SAT-86% PER PULSE OX. AT BEDSIDE, PT. STATES SHE IS AWARE; PT. HAD POSITIONED PULSE OX. TO VISUALIZE NUMBERS.
--- NOTE | 2020-01-14 16:26 | NUR ---
SPOKE WITH DR. LUNA VIA TELEMEDICINE. UPDATED ON STATUS AND QUESTIONS ANSWERED.
[2020-01-14 16:33] VITALS: BP 136/79
[2020-01-14 19:59] VITALS: BP 129/75
[2020-01-14] MEDS: ENOXAPARIN SODIUM 30 MG/0.3 ML SQ SCH (20:18)
[2020-01-14] MEDS ORDERED: ENOXAPARIN SODIUM 80 MG/0.8 ML SQ SCH (21:00)
[2020-01-15] VITALS (7 sets, daily range): BP systolic 108–138; BP diastolic 61–84
[2020-01-15] MEDS: GUAIFENESIN-DM 200/20 MG 10 ML PO PRN (01:39)
[2020-01-15] MEDS: ALBUTEROL INHALER 90MCG/INH IH SCH ×6 (01:50→21:13)
[2020-01-15] MEDS: METHYLPREDNISOLONE SOD SUCC 40MG/ML 1ML IVP SCH ×4 (04:37→23:51)
[2020-01-15] MEDS: ZOSYN 3.375GM+NS 50ML 50 ML IV SCH ×3 (04:37→20:11)
[2020-01-15 05:37] LABS: BASOPHILS % (AUTO) 0.1 % (0.0-5.0); HEMATOCRIT 37.5 % (36-48); LYMPHOCYTES % (AUTO) 3.6 % (21.0-51.0); MEAN CORPUSCULAR HEMOGLOBIN 25.6 pg (27.0-33.0); MEAN CORPUSCULAR HGB CONC 30.9 g/dL (32.0-36.0); MEAN CORPUSCULAR VOLUME 82.8 fL (79-99); MONOCYTES % (AUTO) 4.4 % (3.0-13.0); NEUTROPHILS % (AUTO) 89.6 % (40.0-77.0); PLATELET COUNT (AUTO) 432 K/uL (130-400); RED BLOOD CELL COUNT(AUTO) 4.53 MIL/uL (4.00-5.50); RED CELL DISTRIBUTION WIDTH 17.5 % (11.0-15.5); WHITE BLOOD COUNT (AUTO) 21.4 K/uL (4.8-10.8)
[2020-01-15 06:46] LABS: FIBRINOGEN 290 mg/dL (180-350)
[2020-01-15] MEDS: PANTOPRAZOLE SODIUM 40 MG TABLET.DR PO SCH (07:55)
[2020-01-15] MEDS: ENOXAPARIN SODIUM 30 MG/0.3 ML SQ SCH ×2 (07:56→20:13)
[2020-01-15] MEDS: FLUTICASONE/VILANTEROL 1 EACH BLST.W.DEV IH SCH (07:56)
[2020-01-15 08:28] LABS: D-DIMER 315 ng/mL (0-500)
--- NOTE | 2020-01-15 11:59 | NUR ---
DR. JAY BLANK. UPDATED ON PT. STATUS AND QUESTIONS ANSWERED. MADE MD AWARE PT. DOES NOT COMPLY WITH PRONING, VERBALIZED UNDERSTANDING.
[2020-01-16] MEDS: ALBUTEROL INHALER 90MCG/INH IH SCH ×6 (01:42→21:07)
[2020-01-16 03:00] VITALS: BP 133/64
[2020-01-16 04:29] LABS: BASOPHILS % (AUTO) 0.1 % (0.0-5.0); HEMATOCRIT 35.7 % (36-48); LYMPHOCYTES % (AUTO) 1.7 % (21.0-51.0); MEAN CORPUSCULAR HEMOGLOBIN 25.7 pg (27.0-33.0); MEAN CORPUSCULAR HGB CONC 31.7 g/dL (32.0-36.0); MEAN CORPUSCULAR VOLUME 81.3 fL (79-99); MONOCYTES % (AUTO) 3.8 % (3.0-13.0); NEUTROPHILS % (AUTO) 92.9 % (40.0-77.0); PLATELET COUNT (AUTO) 319 K/uL (130-400); RED BLOOD CELL COUNT(AUTO) 4.39 MIL/uL (4.00-5.50); RED CELL DISTRIBUTION WIDTH 17.2 % (11.0-15.5); WHITE BLOOD COUNT (AUTO) 24.8 K/uL (4.8-10.8)
[2020-01-16 04:48] LABS: CRP QUANTITATIVE 11.3 mg/L (0.00-9.0)
[2020-01-16] MEDS: ZOSYN 3.375GM+NS 50ML 50 ML IV SCH ×3 (05:22→21:07)
[2020-01-16] MEDS: METHYLPREDNISOLONE SOD SUCC 40MG/ML 1ML IVP SCH ×4 (05:22→23:15)
[2020-01-16] MEDS: ACETAMINOPHEN 325 MG TAB PO PRN (05:50)
[2020-01-16] MEDS: ENOXAPARIN SODIUM 30 MG/0.3 ML SQ SCH ×2 (10:38→21:07)
[2020-01-16] MEDS: PANTOPRAZOLE SODIUM 40 MG TABLET.DR PO SCH (10:38)
[2020-01-16] MEDS: FLUTICASONE/VILANTEROL 1 EACH BLST.W.DEV IH SCH (10:38)
[2020-01-16 12:00] VITALS: BP 109/56
[2020-01-16 16:00] VITALS: BP 129/66
[2020-01-16 18:56] VITALS: BP 102/56
[2020-01-16 19:00] VITALS: BP 114/65
[2020-01-16 23:00] VITALS: BP 129/72
[2020-01-17] MEDS: ALBUTEROL INHALER 90MCG/INH IH SCH ×6 (02:48→21:01)
[2020-01-17 03:00] VITALS: BP 183/63
[2020-01-17] MEDS: ZOSYN 3.375GM+NS 50ML 50 ML IV SCH ×3 (04:41→20:59)
[2020-01-17] MEDS: METHYLPREDNISOLONE SOD SUCC 40MG/ML 1ML IVP SCH ×4 (04:41→20:57)
[2020-01-17 05:51] LABS: BASOPHILS % (AUTO) 0.1 % (0.0-5.0); HEMATOCRIT 36.3 % (36-48); LYMPHOCYTES % (AUTO) 3.4 % (21.0-51.0); MEAN CORPUSCULAR HEMOGLOBIN 25.9 pg (27.0-33.0); MEAN CORPUSCULAR HGB CONC 31.7 g/dL (32.0-36.0); MEAN CORPUSCULAR VOLUME 81.8 fL (79-99); MONOCYTES % (AUTO) 4.8 % (3.0-13.0); PLATELET COUNT (AUTO) 288 K/uL (130-400); RED BLOOD CELL COUNT(AUTO) 4.44 MIL/uL (4.00-5.50); RED CELL DISTRIBUTION WIDTH 17.1 % (11.0-15.5); WHITE BLOOD COUNT (AUTO) 16.6 K/uL (4.8-10.8)
[2020-01-17 06:19] LABS: CREATININE 0.7 mg/dL (0.5-1.5); CRP QUANTITATIVE 23.8 mg/L (0.00-9.0); POTASSIUM 4.5 mmol/L (3.5-5.1)
[2020-01-17 06:23] LABS: B-TYPE NATRIURETIC PEPTIDE 7 pg/mL (0-100)
[2020-01-17 07:30] VITALS: BP 123/74
[2020-01-17] MEDS: ENOXAPARIN SODIUM 30 MG/0.3 ML SQ SCH ×2 (09:12→20:58)
[2020-01-17] MEDS: PANTOPRAZOLE SODIUM 40 MG TABLET.DR PO SCH (09:12)
[2020-01-17] MEDS: FLUTICASONE/VILANTEROL 1 EACH BLST.W.DEV IH SCH (09:19)
--- NOTE | 2020-01-17 11:17 | NUR ---
in regards to new consult ann torre for me for cardiovascular consult
[2020-01-17 11:30] VITALS: BP 128/75
--- NOTE | 2020-01-17 12:30 | NUR ---
dr amezquita is telephonic case manager for dr torre; i spoke to him on the phone and he stated there was nothing surgically he could do to assist the patient; he stated he would see the pateint tomorrow when he rounds face to face; he stated if the consulting physician wanted to ask his advice on the patient to call him at [phone]; i attempted to call dr hunt to inform him of this since he placed the order but was told by answering service that dr puente is telephonic case manager; i will try a more direct number to reach him
--- NOTE | 2020-01-17 14:00 | NUR ---
i spoke to dr hunt on the phone and he stated it would be ok for dr amezquita to see pt tomorrow; that it was not an immediate issue but that pt might need a chest tube further down the line for small pneumo she has noted on cxr.
[2020-01-17 15:30] VITALS: BP 104/65
--- NOTE | 2020-01-17 18:39 | NUR ---
shift summary: pt was on partial rebreather for 1/2 the day sat 94 %; dr orta rounded and said to go back to the non rebreather at 100% oxygen, due to pt's abnormal cxr and this was done; pt cont. to sat 94% on non rebreather; dr melton was consulted for cardiovascular evaluation of pt's abnormal cxr showing pneumo mediastinum; he stated he would evaluate the pt tomorrow if it was not an emergency and he had already reveiwed pt's abnormality when she was in ed; pt has voided incontinent several times today and eaten 100% of all her meals; she has ezekiel prone several times today and tolerated it well.
[2020-01-17 19:00] VITALS: BP 129/74
[2020-01-17 23:00] VITALS: BP 150/76
[2020-01-18] MEDS: ALBUTEROL INHALER 90MCG/INH IH SCH ×6 (01:53→21:09)
[2020-01-18 03:00] VITALS: BP 99/58
[2020-01-18] MEDS: ZOSYN 3.375GM+NS 50ML 50 ML IV SCH ×3 (05:14→21:08)
[2020-01-18] MEDS: METHYLPREDNISOLONE SOD SUCC 40MG/ML 1ML IVP SCH ×2 (05:14→12:52)
[2020-01-18 05:26] LABS: BASOPHILS % (AUTO) 0.2 % (0.0-5.0); EOSINOPHILS % (AUTO) 0.1 % (0.0-8.0); HEMATOCRIT 35.4 % (36-48); LYMPHOCYTES % (AUTO) 2.6 % (21.0-51.0); MEAN CORPUSCULAR HEMOGLOBIN 25.9 pg (27.0-33.0); MEAN CORPUSCULAR HGB CONC 31.6 g/dL (32.0-36.0); MEAN CORPUSCULAR VOLUME 81.8 fL (79-99); MONOCYTES % (AUTO) 4.1 % (3.0-13.0); NEUTROPHILS % (AUTO) 91.7 % (40.0-77.0); PLATELET COUNT (AUTO) 251 K/uL (130-400); RED BLOOD CELL COUNT(AUTO) 4.33 MIL/uL (4.00-5.50); RED CELL DISTRIBUTION WIDTH 16.8 % (11.0-15.5); WHITE BLOOD COUNT (AUTO) 18.8 K/uL (4.8-10.8)
[2020-01-18 05:53] LABS: ALBUMIN 2.6 g/dL (3.5-5.0); BILIRUBIN,TOTAL 0.6 mg/dL (0.2-1.0); CREATININE 0.7 mg/dL (0.5-1.5); CRP QUANTITATIVE 6.9 mg/L (0.00-9.0); POTASSIUM 4.5 mmol/L (3.5-5.1); TOTAL PROTEIN, SERUM 6.4 g/dL (6.0-8.3)
[2020-01-18 07:30] VITALS: BP 115/54
[2020-01-18] MEDS: PANTOPRAZOLE SODIUM 40 MG TABLET.DR PO SCH (09:47)
[2020-01-18] MEDS: ENOXAPARIN SODIUM 30 MG/0.3 ML SQ SCH ×2 (09:48→16:45)
[2020-01-18] MEDS: FLUTICASONE/VILANTEROL 1 EACH BLST.W.DEV IH SCH (09:48)
[2020-01-18 11:30] VITALS: BP 143/84
[2020-01-18 15:30] VITALS: BP 106/58
--- NOTE | 2020-01-18 18:07 | NUR ---
shift summary; pt cont to non rebreather mask at 100% o2; she cont. to sat at 94%, she has is sitting on the edge of bed for her meals and was able to stand and sit on a bedside comode to urinate and have bowel movement--she was sob after getting on comode but within limits, she also took the initiative to brush her own teeth; in good spirits today, eating 100% of her meals.
[2020-01-18 20:00] VITALS: BP 114/88
[2020-01-19] VITALS (7 sets, daily range): BP systolic 91–123; BP diastolic 54–72
[2020-01-19] MEDS: ALBUTEROL INHALER 90MCG/INH IH SCH ×6 (03:22→21:46)
[2020-01-19 05:28] LABS: HEMATOCRIT 34.9 % (36-48); MEAN CORPUSCULAR HEMOGLOBIN 25.8 pg (27.0-33.0); MEAN CORPUSCULAR HGB CONC 31.5 g/dL (32.0-36.0); MEAN CORPUSCULAR VOLUME 81.9 fL (79-99); PLATELET COUNT (AUTO) 195 K/uL (130-400); RED BLOOD CELL COUNT(AUTO) 4.26 MIL/uL (4.00-5.50); RED CELL DISTRIBUTION WIDTH 16.8 % (11.0-15.5); WHITE BLOOD COUNT (AUTO) 14.7 K/uL (4.8-10.8)
[2020-01-19] MEDS: ZOSYN 3.375GM+NS 50ML 50 ML IV SCH ×3 (05:28→20:36)
[2020-01-19 05:49] LABS: HEMOGLOBIN A1C 7.1 % (4.0-6.0)
[2020-01-19 06:21] LABS: ALBUMIN 2.5 g/dL (3.5-5.0); BILIRUBIN,TOTAL 0.6 mg/dL (0.2-1.0); CREATININE 0.5 mg/dL (0.5-1.5); POTASSIUM 4.2 mmol/L (3.5-5.1); TOTAL PROTEIN, SERUM 6.1 g/dL (6.0-8.3)
[2020-01-19] MEDS: ACETAMINOPHEN 325 MG TAB PO PRN (06:36)
[2020-01-19 08:03] LABS: BAND NEUTROPHILS % (MANUAL) 1 % (0-2); EOSINOPHILS % (MANUAL) 3 % (1-6); LYMPHOCYTES % (MANUAL) 7 % (22-44); MAN.DIFF COMMENT-IMPRESSION MANUAL DIFFERENTIAL; MONOCYTES % (MANUAL) 6 % (2-9); PLATELET MORPHOLOGY COMMENT ADEQUATE; SEGMENTED NEUTROPHILS % 83 % (40-70)
[2020-01-19] MEDS: PANTOPRAZOLE SODIUM 40 MG TABLET.DR PO SCH (09:04)
[2020-01-19] MEDS: FLUTICASONE/VILANTEROL 1 EACH BLST.W.DEV IH SCH (09:05)
[2020-01-19] MEDS: DEXAMETHASONE 4 MG TAB PO SCH (09:05)
[2020-01-19] MEDS: ENOXAPARIN SODIUM 30 MG/0.3 ML SQ SCH (09:13)
[2020-01-19] MEDS ORDERED: IBUPROFEN 200 MG TAB PO PRN (11:08)
[2020-01-19] MEDS: IBUPROFEN 400 MG TABLET PO PRN ×2 (11:27→11:28)
--- NOTE | 2020-01-19 12:30 | NUR ---
PT HAD BEEN C/O PAIN TO HER KNEE'S WITH NO RELIEF FROM TYLENOL; I HAVE APPLIED ICE PACKS AND GOT ORDER FOR IBUPROFEN AFTER TAKING IBUPROFEN PT DENIES PAIN.
[2020-01-19] MEDS: METFORMIN HCL 500 MG TAB.SR.24H PO SCH (16:45)
--- NOTE | 2020-01-19 18:32 | NUR ---
shift summary: pt has stayed with non rebreather mask at 15L through out the day, she consistantly sat's at 94%; she had knee pain early in shift that resolved with ice packs and ibuprofen; she did not want to walk today but did sit on edge of bed for meals; her ex- called this morning asking how she is doing and i asked her if it was ok to give him information and she stated yes.
[2020-01-20] MEDS: ALBUTEROL INHALER 90MCG/INH IH SCH ×6 (01:11→21:09)
[2020-01-20] MEDS ORDERED: IBUPROFEN 400 MG TABLET ONE (03:07)
[2020-01-20] MEDS: IBUPROFEN 400 MG TABLET PO PRN (03:14)
[2020-01-20 03:22] VITALS: BP 103/73
[2020-01-20] MEDS: ZOSYN 3.375GM+NS 50ML 50 ML IV SCH ×3 (05:02→20:44)
[2020-01-20 05:59] LABS: HEMATOCRIT 35.6 % (36-48); MEAN CORPUSCULAR HEMOGLOBIN 25.9 pg (27.0-33.0); MEAN CORPUSCULAR HGB CONC 31.5 g/dL (32.0-36.0); MEAN CORPUSCULAR VOLUME 82.2 fL (79-99); PLATELET COUNT (AUTO) 177 K/uL (130-400); RED BLOOD CELL COUNT(AUTO) 4.33 MIL/uL (4.00-5.50)
[2020-01-20 06:24] LABS: ALBUMIN 2.6 g/dL (3.5-5.0); BILIRUBIN,TOTAL 0.7 mg/dL (0.2-1.0); CREATININE 0.6 mg/dL (0.5-1.5); CRP QUANTITATIVE 17.3 mg/L (0.00-9.0); POTASSIUM 3.8 mmol/L (3.5-5.1); TOTAL PROTEIN, SERUM 6.3 g/dL (6.0-8.3)
[2020-01-20 08:00] VITALS: BP 96/65
[2020-01-20] MEDS: DEXAMETHASONE 4 MG TAB PO SCH (08:22)
[2020-01-20] MEDS: METFORMIN HCL 500 MG TAB.SR.24H PO SCH ×3 (08:22→23:45)
[2020-01-20] MEDS: PANTOPRAZOLE SODIUM 40 MG TABLET.DR PO SCH (08:22)
[2020-01-20] MEDS: FLUTICASONE/VILANTEROL 1 EACH BLST.W.DEV IH SCH (08:23)
[2020-01-20] MEDS ORDERED: ENOXAPARIN SODIUM 40 MG/0.4 ML SYRINGE SQ ONE (08:25)
[2020-01-20] MEDS: ENOXAPARIN SODIUM 30 MG/0.3 ML SQ SCH ×2 (08:27→08:39)
[2020-01-20 10:52] LABS: EOSINOPHILS % (MANUAL) 1 % (1-6); LYMPHOCYTES % (MANUAL) 5 % (22-44); MAN.DIFF COMMENT-IMPRESSION MANUAL DIFFERENTIAL; MONOCYTES % (MANUAL) 1 % (2-9); PLATELET MORPHOLOGY COMMENT ADEQUATE; SEGMENTED NEUTROPHILS % 93 % (40-70)
[2020-01-20 11:30] VITALS: BP 108/67
[2020-01-20 15:30] VITALS: BP 123/71
--- NOTE | 2020-01-20 17:10 | NUR ---
SITTING UP IN BED EATING DINNER. DENIES ANY C/O AT THIS TIME. CALL LIGHT WITHIN REACH.
[2020-01-20] MEDS: INSULIN HUMULIN R 100 UNIT/ML 3ML SQ SCH ×2 (17:15→20:48)
[2020-01-20 19:57] VITALS: BP 136/72
[2020-01-20] MEDS: NYSTATIN 100000 UNIT/ML 5ML UDCUP PO SCH (20:44)
[2020-01-20 23:45] VITALS: BP 92/61
[2020-01-21] MEDS: ALBUTEROL INHALER 90MCG/INH IH SCH ×6 (01:15→22:57)
[2020-01-21] MEDS: ACETAMINOPHEN 325 MG TAB PO PRN (02:40)
[2020-01-21 03:17] VITALS: BP 107/54
[2020-01-21 05:11] LABS: BASOPHILS % (AUTO) 0.2 % (0.0-5.0); EOSINOPHILS % (AUTO) 2.1 % (0.0-8.0); HEMATOCRIT 34.7 % (36-48); LYMPHOCYTES % (AUTO) 8.8 % (21.0-51.0); MEAN CORPUSCULAR HGB CONC 31.7 g/dL (32.0-36.0); MONOCYTES % (AUTO) 4.4 % (3.0-13.0); NEUTROPHILS % (AUTO) 81.9 % (40.0-77.0); PLATELET COUNT (AUTO) 146 K/uL (130-400); RED BLOOD CELL COUNT(AUTO) 4.23 MIL/uL (4.00-5.50); RED CELL DISTRIBUTION WIDTH 17.3 % (11.0-15.5); WHITE BLOOD COUNT (AUTO) 13.3 K/uL (4.8-10.8)
[2020-01-21 05:32] LABS: ALBUMIN 2.6 g/dL (3.5-5.0); BILIRUBIN,TOTAL 0.5 mg/dL (0.2-1.0); CREATININE 0.6 mg/dL (0.5-1.5); CRP QUANTITATIVE 28.3 mg/L (0.00-9.0); POTASSIUM 3.8 mmol/L (3.5-5.1); TOTAL PROTEIN, SERUM 6.1 g/dL (6.0-8.3)
[2020-01-21] MEDS: INSULIN HUMULIN R 100 UNIT/ML 3ML SQ SCH ×4 (05:46→22:57)
[2020-01-21] MEDS: METFORMIN HCL 500 MG TAB.SR.24H PO SCH ×3 (07:35→17:01)
[2020-01-21] MEDS: GLIPIZIDE 5 MG TABLET PO SCH ×2 (07:35→17:01)
[2020-01-21 08:00] VITALS: BP 99/59
[2020-01-21] MEDS: NYSTATIN 100000 UNIT/ML 5ML UDCUP PO SCH ×4 (08:39→22:56)
[2020-01-21] MEDS: DEXAMETHASONE 4 MG TAB PO SCH (08:40)
[2020-01-21] MEDS: PANTOPRAZOLE SODIUM 40 MG TABLET.DR PO SCH (08:40)
[2020-01-21] MEDS: FLUTICASONE/VILANTEROL 1 EACH BLST.W.DEV IH SCH (08:42)
[2020-01-21] MEDS: ENOXAPARIN SODIUM 30 MG/0.3 ML SQ SCH (08:42)
--- NOTE | 2020-01-21 10:23 | NUR ---
RECEIVED CALL FROM ADDISON BYRD, "THE FATHER OF HER CHILDREN" PER HIMSELF; PT. STATED OK TO DISCLOSE INFORMATION. QUESTIONS ANSWERED TO ADDISON BYRD AND VERBALIZED UNDERSTANDING.
[2020-01-21 11:30] VITALS: BP 115/68
[2020-01-21] MEDS: IBUPROFEN 400 MG TABLET PO PRN (11:55)
--- NOTE | 2020-01-21 14:29 | NUR ---
CANCEL ORDER. MBSS ORDER RECEIVED. REASON: R/O ESOPHAGEAL PERFORATION. PHARMACY TECHNICIAN INSTRUCTOR COORDINATED WITH NURSE ABRAMS FOR CLARIFICATION. NURSE TO ORDER BARIUM SWALLOW EXAM, CANCEL MBSS (ESOPHAGEAL IMAGE NOT OBTAINED WITH MBSS). Addendum: 01/21/20 at 1431 by FERNANDO RENEE, SPT ST Amended: Links added.
--- NOTE | 2020-01-21 15:42 | NUR ---
[facility] Discussed dcp. Patient in agreement to LTACH at [facility]. CM offered to call family to inform of updated plan. Patient declined. Referral faxed to [facility]. Patient accepted, pending no more Tylenol given tonight. Notified bedside nurse. Anticipate dcp for tomorrow. CD Addendum: 01/21/20 at 1547 by DAYSI MCCULLOUGH CM Amended: Links added.
[2020-01-21] MEDS ORDERED: DIATR MEGLU/DIATRIZOATE SODIUM 30 ML BOTTLE ONE (15:49)
[2020-01-21 17:01] VITALS: BP 124/66
[2020-01-21 21:38] VITALS: BP 115/83
[2020-01-21] MEDS: APIXABAN 2.5 MG TABLET PO SCH (22:56)
[2020-01-22] VITALS (7 sets, daily range): BP systolic 107–127; BP diastolic 42–86
[2020-01-22] MEDS: ALBUTEROL INHALER 90MCG/INH IH SCH ×6 (01:01→21:35)
[2020-01-22 05:17] LABS: HEMATOCRIT 36.3 % (36-48); MEAN CORPUSCULAR HGB CONC 31.4 g/dL (32.0-36.0); MEAN CORPUSCULAR VOLUME 82.7 fL (79-99); PLATELET COUNT (AUTO) 171 K/uL (130-400); RED BLOOD CELL COUNT(AUTO) 4.39 MIL/uL (4.00-5.50); RED CELL DISTRIBUTION WIDTH 17.3 % (11.0-15.5); WHITE BLOOD COUNT (AUTO) 12.8 K/uL (4.8-10.8)
[2020-01-22] MEDS: INSULIN HUMULIN R 100 UNIT/ML 3ML SQ SCH ×4 (05:55→20:44)
[2020-01-22] MEDS: ACETAMINOPHEN 325 MG TAB PO PRN (05:56)
[2020-01-22 06:05] LABS: ALBUMIN 2.7 g/dL (3.5-5.0); BILIRUBIN,TOTAL 0.4 mg/dL (0.2-1.0); CREATININE 0.5 mg/dL (0.5-1.5); CRP QUANTITATIVE 16.5 mg/L (0.00-9.0); POTASSIUM 3.7 mmol/L (3.5-5.1); TOTAL PROTEIN, SERUM 6.2 g/dL (6.0-8.3)
[2020-01-22 08:04] LABS: BAND NEUTROPHILS % (MANUAL) 1 % (0-2); EOSINOPHILS % (MANUAL) 1 % (1-6); LYMPHOCYTES % (MANUAL) 15 % (22-44); MAN.DIFF COMMENT-IMPRESSION MANUAL DIFFERENTIAL; MONOCYTES % (MANUAL) 5 % (2-9); PLATELET MORPHOLOGY COMMENT ADEQUATE; SEGMENTED NEUTROPHILS % 78 % (40-70)
[2020-01-22] MEDS: METFORMIN HCL 850 MG TABLET PO SCH ×4 (08:07→16:54)
[2020-01-22] MEDS: APIXABAN 2.5 MG TABLET PO SCH ×2 (08:08→20:49)
[2020-01-22] MEDS: DEXAMETHASONE 4 MG TAB PO SCH (08:08)
[2020-01-22] MEDS: PANTOPRAZOLE SODIUM 40 MG TABLET.DR PO SCH (08:08)
[2020-01-22] MEDS: GLIPIZIDE 5 MG TABLET PO SCH ×2 (08:09→16:54)
[2020-01-22] MEDS: NYSTATIN 100000 UNIT/ML 5ML UDCUP PO SCH ×4 (08:09→20:49)
[2020-01-22] MEDS: FLUTICASONE/VILANTEROL 1 EACH BLST.W.DEV IH SCH (08:10)
[2020-01-22] MEDS: IBUPROFEN 600 MG TABLET PO PRN ×2 (10:46→18:27)
--- NOTE | 2020-01-22 13:40 | NUR ---
RD FOLLOW UP Pt tolerating Regular diet order with no report of GI distress, Good PO intake. Pt however with recent elevated BG levels, levels currently improved. Also with improving WBC and Alb levels. Pt is s/p Plasma Tx. Partial NRB and supplemental O2. Recommend modify diet to 75gm CCD Recommend 30mL ProMod QD RD to continue to monitor. Please notify RD as additional nutrition concerns arise. Thank you.
[2020-01-23] MEDS: ALBUTEROL INHALER 90MCG/INH IH SCH ×5 (01:42→17:29)
[2020-01-23 03:00] VITALS: BP 101/52
[2020-01-23] MEDS: IBUPROFEN 600 MG TABLET PO PRN (03:16)
[2020-01-23 05:07] LABS: BASOPHILS % (AUTO) 0.4 % (0.0-5.0); EOSINOPHILS % (AUTO) 3.5 % (0.0-8.0); HEMATOCRIT 35.2 % (36-48); LYMPHOCYTES % (AUTO) 18.6 % (21.0-51.0); MEAN CORPUSCULAR HEMOGLOBIN 26.3 pg (27.0-33.0); MEAN CORPUSCULAR HGB CONC 31.5 g/dL (32.0-36.0); MEAN CORPUSCULAR VOLUME 83.4 fL (79-99); MONOCYTES % (AUTO) 5.5 % (3.0-13.0); NEUTROPHILS % (AUTO) 66.4 % (40.0-77.0); PLATELET COUNT (AUTO) 164 K/uL (130-400); RED BLOOD CELL COUNT(AUTO) 4.22 MIL/uL (4.00-5.50); RED CELL DISTRIBUTION WIDTH 17.8 % (11.0-15.5); WHITE BLOOD COUNT (AUTO) 13.6 K/uL (4.8-10.8)
[2020-01-23] MEDS: INSULIN HUMULIN R 100 UNIT/ML 3ML SQ SCH ×3 (05:16→17:29)
[2020-01-23 05:27] LABS: ALBUMIN 2.6 g/dL (3.5-5.0); BILIRUBIN,TOTAL 0.3 mg/dL (0.2-1.0); CREATININE 0.6 mg/dL (0.5-1.5); POTASSIUM 3.9 mmol/L (3.5-5.1)
[2020-01-23] MEDS: METFORMIN HCL 850 MG TABLET PO SCH ×2 (07:52→17:28)
[2020-01-23] MEDS: APIXABAN 2.5 MG TABLET PO SCH (07:52)
[2020-01-23] MEDS: GLIPIZIDE 5 MG TABLET PO SCH ×2 (07:52→17:28)
[2020-01-23] MEDS: PANTOPRAZOLE SODIUM 40 MG TABLET.DR PO SCH (07:52)
[2020-01-23] MEDS: DEXAMETHASONE 4 MG TAB PO SCH (07:53)
[2020-01-23] MEDS: NYSTATIN 100000 UNIT/ML 5ML UDCUP PO SCH ×3 (07:55→17:00)
[2020-01-23] MEDS: FLUTICASONE/VILANTEROL 1 EACH BLST.W.DEV IH SCH (07:56)
[2020-01-23 08:00] VITALS: BP 105/65
[2020-01-23 11:30] VITALS: BP 122/71
--- NOTE | 2020-01-23 15:29 | NUR ---
REPORT TO AGUSTO LIZ RN AT [facility].
[2020-01-23 15:30] VITALS: BP 127/81
[2020-01-23] MEDS ORDERED: FLUCONAZOLE 100 MG TAB PO SCH (17:00)
--- NOTE | 2020-01-23 18:05 | NUR ---
DISCHARGE INSTRUCTIONS GIVEN, VERBALIZED UNDERSTANDING.
--- NOTE | 2020-01-23 18:50 | NUR ---
DISCHARGED VIA STRETCHER BY EMS. Addendum: 01/23/20 at 2 by ALIZA STEEN RN RN DISCHARGED WITH BELONGINGS.
== END 2020-01-23 18:50 | DRG 871 ==
LOC: EDH 20:49 → OBSVTOIN 12-31 00:06 → INTOOBSV 12-31 00:06 → EDHIP 12-31 00:06 → 2CH 01-01 23:56 → 2AH 01-08 18:39
PROVIDERS: ADMIT Internal Medicine; ATTEND Internal Medicine
PROC: 30233K1 Transfusion of Nonautologous Frozen Plasma into Peripheral Vein, Percutaneous Approach (ICD-10-PCS; principal; 2019-12-31)
DX: A41.89 Other specified sepsis (principal); U07.1 COVID-19; J96.01 Acute respiratory failure with hypoxia; J12.89 Other viral pneumonia; T79.7XXA Traumatic subcutaneous emphysema, initial encounter; R65.20 Severe sepsis without septic shock; E11.65 Type 2 diabetes mellitus with hyperglycemia; Z32.01 Encounter for pregnancy test, result positive; Z79.4 Long term (current) use of insulin; Z87.442 Personal history of urinary calculi; Z91.19 Patient's noncompliance with other medical treatment and regimen; Y93.89 Activity, other specified; Y92.89 Other specified places as the place of occurrence of the external cause; Y99.8 Other external cause status
CPT/HCPCS: 0099U; 36415; 36430; 36600; 71045; 71250; 71275; 80048; 80053; 81001; 81025; 82435; 82550; 82728; 82803; 82947; 82948; 83036; 83605; 83615; 83735; 83874; 83880; 84100; 84132; 84145; 84295; 84478; 84484; 84550; 84702; 84703; 85018; 85025; 85378; 85384; 85610; 86140; 86850; 86900; 86901; 86927; 87040; 87486; 87581; 87633; 87798; 87804; 93306; 93356; G0378; J0456; J0696; J1100; J1650; J1815; J1940; J2405; J2543; J2920; J2930; J7030; J7040; J7050; J8540; P9017; Q0163; Q9963; Q9967; U0003